=== PATIENT | male | born 1980 | race Two or more races ===

== ENCOUNTER 2019-11-08 07:17 | Emergency (ER) | payer MEDICAID ==
[~2019-11-08] VITALS: Ht 165.1 cm; Wt 90.7 kg
[~2019-11-08 07:17] MED LIST: Doxycycline Monohydrate 100mg ORAL SCH
[2019-11-08] MEDS ORDERED: FAMOTIDINE20 MG ORAL (07:29)
[2019-11-08 07:45] VITALS: BP 127/77
[2019-11-08] MEDS ORDERED: ceFAZolin sod 1 GM in NS 55 ML IVPB ONE (07:45)
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
[2019-11-08 08:17] LABS: BASOPHILS % (AUTO) 0.8 % (0.0-2.0); EOSINOPHILS % (AUTO) 1.4 % (0.0-3.0); HEMATOCRIT 45.5 % (42.0-52.0); HEMOGLOBIN 14.8 G/DL (14.2-18.0); LYMPHOCYTES % (AUTO) 15.2 % (20.0-45.0); MEAN CORPUSCULAR VOLUME 85 FL (80-99); MONOCYTES % (AUTO) 5.5 % (1.0-10.0); NEUTROPHILS % (AUTO) 77.1 % (45.0-75.0); PLATELET COUNT 313 K/UL (150-450); RED BLOOD COUNT 5.34 M/UL (4.70-6.10); WHITE BLOOD COUNT 11.1 K/UL (4.8-10.8)
[2019-11-08 08:18] LABS: APPEARANCE,URINE CLEAR; BILIRUBIN, URINE NEGATIVE (NEGATIVE); COLOR,URINE PALE YELLOW; GLUCOSE, URINE (UA) NEGATIVE (NEGATIVE); KETONES,URINE NEGATIVE (NEGATIVE); LEUKOCYTE ESTERASE ,URINE NEGATIVE (NEGATIVE); NITRITE,URINE NEGATIVE (NEGATIVE); PH,URINE 6.5 (4.5-8.0); PROTEIN,URINE 1+ (NEGATIVE); UROBILINOGEN,URINE 1 MG/DL (0.0-1.0)
[2019-11-08 08:24] LABS: ANION GAP 11 mmol/L (5-15); BLOOD UREA NITROGEN 17 mg/dL (7-18); CALCIUM 8.7 MG/DL (8.5-10.1); CARBON DIOXIDE 24 MMOL/L (21-32); CHLORIDE 103 MMOL/L (98-107); CREATININE 0.7 MG/DL (0.55-1.30); POTASSIUM 4.4 MMOL/L (3.5-5.1); SODIUM 138 MMOL/L (136-145)
[2019-11-08 08:29] LABS: ALANINE AMINOTRANSFERASE 32 U/L (12-78); ALBUMIN/GLOBULIN RATIO 0.6 (1.0-2.7); ALKALINE PHOSPHATASE 139 U/L (46-116); ASPARTATE AMINO TRANSFERASE 25 U/L (15-37); BILIRUBIN,TOTAL 0.2 MG/DL (0.2-1.0)
--- NOTE | 2019-11-08 08:40 | Diagnostic Imaging Report ---
EXAM: XR Chest, 1 View CLINICAL HISTORY: INFECT TECHNIQUE: Frontal view of the chest. COMPARISON: No relevant prior studies available. FINDINGS: Lungs: Hypoventilatory lungs. Bibasilar lung atelectasis. Mild opacity in the left upper lung suprahilar region, cannot exclude developing pneumonia. Pleural space: Unremarkable. No pneumothorax. Heart: Unremarkable. No cardiomegaly. Mediastinum: Unremarkable. Bones/joints: Unremarkable. IMPRESSION: Hypoventilatory lungs. Bibasilar lung atelectasis. Mild opacity in the left upper lung suprahilar region, cannot exclude developing pneumonia.
[2019-11-08] MEDS ORDERED: DOXYCYCLINE MO100 MG ORAL (11:05)
[2019-11-08] MEDS ORDERED: TERBINAFINE HCL30 GM TP (11:05)
--- NOTE | 2019-11-08 11:36 | Diagnostic Imaging Report ---
EXAM: US Duplex Bilateral Lower Extremities Veins CLINICAL HISTORY: SWELL TECHNIQUE: Real-time duplex ultrasound scan of the bilateral lower extremity veins integrating B-mode two-dimensional vascular structure, Doppler spectral analysis, color flow Doppler imaging and compression. COMPARISON: No relevant prior studies available. FINDINGS: Right deep veins: Unremarkable. No DVT in the right common femoral, femoral, proximal deep femoral or popliteal veins. The veins demonstrate normal color flow, are normally compressible, with normal phasic flow and/or augmentation response. Right superficial veins: Unremarkable. No thrombus in the visualized right great saphenous vein. Left deep veins: Unremarkable. No DVT in the left common femoral, femoral, proximal deep femoral or popliteal veins. The veins demonstrate normal color flow, are normally compressible, with normal phasic flow and/or augmentation response. Left superficial veins: Unremarkable. No thrombus in the visualized left great saphenous vein. Soft tissues: No acute findings. No popliteal cyst. IMPRESSION: Normal bilateral lower extremity duplex venous ultrasound.
[2019-11-08 12:15] VITALS: BP 111/84
== END 2019-11-08 12:15 | disposition home or self-care (01) ==
LOC: EDBD 07:17 → EMR 07:47
DX: B35.3 Tinea pedis (principal); L03.90 Cellulitis, unspecified; Z59.0 Homelessness
CPT/HCPCS: 36415; 71045; 80053; 81003; 83605; 84484; 85025; 87040; 93005; 93970; 96365; J0690; Z7502; 99284